=== PATIENT | female | born 1975 | race Caucasian/White ===

== ENCOUNTER 2017-04-10 16:22 | Emergency (ER) | payer OTHER ==
[2017-04-10 16:49] VITALS: BP 92/56
--- NOTE | 2017-04-10 17:49 | UC ---
Taye Wilks Natalie, scribed for Romain Richmond MD on 04/10/17 at 1748 . Respiratory Complaint HPI - HPI Summary HPI Summary: The pt is a 42 y/o F presenting to c/o productive coughing for a week. It started last week with cold symptoms and she lost her voice over the weekend, but the coughing persisted. The cough is worse at night. 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 Pt additionally c/o clear nasal drainage and chest congestion. Pt denies fever. Pt does not have hx of asthma. - History of Current Complaint Chief Complaint: UCRespiratory Stated Complaint: COUGH Time Seen by Provider: 04/10/17 17:17 Hx Obtained From: Patient Hx Last Menstrual Period: 03/23/2017 Onset/Duration: Lasting Days - started a week ago, Still Present Pain Intensity: 0 Pain Scale Used: 0-10 Numeric Character: Cough: Productive Aggravating Factors: Other - worse at night Alleviating Factors: Nothing Associated Signs And Symptoms: Negative: Fever - Allergies/Home Medications Allergies/Adverse Reactions: Allergies Allergy/AdvReac Type Severity Reaction Status Date / Time No Known Allergies Allergy Verified 04/10/17 16:50 Home Medications: Home Medications Guaifenesin/Pseudo 600/60(NF) [Mucinex D 600/60 (NF)] 1 tab PO BID 04/10/17 [ History Confirmed 04/10/17] [id number] [Nyquil Severe Cold/Flu 5-6.25-10-325 mg/15Ml] 04/10/17 [History] PMH/Surg Hx/FS Hx/Imm Hx - Surgical History Surgical History: Yes Surgery Procedure, Year, and Place: appendectomy 16 years ago - Family History Known Family History: Negative: Cardiac Disease, Hypertension, Diabetes - Social History Alcohol Use: Weekly Smoking Status (MU): Never Smoked Tobacco Review of Systems Constitutional: Other - NEGATIVE: fever ENT: Other - clear nasal drainage Respiratory: Cough Cardiovascular: Other - chest congestion All Other Systems Reviewed And Are Negative: Yes Physical Exam Triage Information Reviewed: Yes Appearance: Well-Appearing, No Pain Distress Vital Signs: Initial Vital Signs Temp 98.0 F 04/10/17 16:43 Pulse 59 04/10/17 16:43 Resp 16 04/10/17 16:43 BP 92/56 04/10/17 16:43 Pulse Ox 100 04/10/17 16:43 Vital Signs Reviewed: Yes Eye Exam: Normal ENT: Positive: Other - Positive rhinorrhea, mild erythema in posterior pharynx Neck: Positive: Supple, Nontender Respiratory: Positive: Other: - CTA, breath sounds present Cardiovascular: Positive: RRR Abdomen Description: Positive: Nontender, Soft Bowel Sounds: Positive: Present Musculoskeletal Exam: Normal Musculoskeletal: Positive: Strength Intact, ROM Intact Neurological: Positive: Other: - normal, sensory/motor intact, A&O x3 Psychological: Positive: Other: - affect/mood appropriate Skin: Positive: Other - warm, color reflects adequate perfusion, dry UC Diagnostic Evaluation - Laboratory O2 Sat by Pulse Oximetry: 100 Respiratory Course/Dx - Differential Dx/Diagnosis Provider Diagnoses: BRONCHITIS. COUGH Discharge - Discharge Plan Condition: Stable Disposition: HOME Prescriptions: Azithromycin TAB* [Zithromax TAB (Z-MARCI) 250 mg #6 tabs] 2 tab PO .TODAY, THEN 1 DAILY #1 marci Guaifenesin-Codeine [Guaiatussin AC] 10 ml PO Q4H PRN #120 ml MDD 60 PRN Reason: Cough Patient Education Materials: Acute Bronchitis (ED) Referrals: Eloise Truong WHIZZER [Primary Care Provider] - Additional Instructions: FOLLOW UP WITH YOUR DOCTOR. GET RECHECKED FOR ANY WORSENING OF YOUR CONDITION OR QUESTIONS OR CONCERNS. The documentation as recorded by the Taye stevenson Natalie accurately reflects the service I personally performed and the decisions made by me, Romain Richmond MD.
== END 2017-04-10 17:43 | disposition home or self-care (01) ==
LOC: UCEAST 16:22
DX: J40 Bronchitis, not specified as acute or chronic (principal)
CPT/HCPCS: 99212; G0463